=== PATIENT | male | born 1970 | race African-American/Black ===

== ENCOUNTER 2024-06-11 21:44 | Emergency (ER) | payer OTHER, SELFPAY ==
[2024-06-11 21:57] VITALS: BP 133/92; PULSE 98; RESP 18; TEMP 39; O2SAT 98; BMI 26.2
--- NOTE | 2024-06-11 22:00 | HMH.EDGENADL ---
Discharge Plan Disposition Patient Disposition: Home, Self-Care Condition: Good Prescriptions Prescriptions: New ondansetron 4 mg tablet,disintegrating 4 mg PO Q6H PRN (Reason: nausea and vomiting) Qty: 7 0RF Referrals Follow up/Referrals: Bertha Meier [Primary Care Provider] - See instructions Activity Restrictions/Add. Instructions Additional Instructions/Restrictions: You were evaluated in the ER and are appropriate for discharge at this time. Take Tylenol (acetaminophen), ibuprofen if needed for fever, body aches. Do not exceed the recommended dose on the bottle. Drink water and eat a small snack each time you take these medications. Take the prescribed ondansetron if needed for nausea or vomiting. Drink plenty of fluids including water, Gatorade, Pedialyte. Rest and recover. Wash your hands to avoid the spread of your illness. Follow-up with primary care doctor for reevaluation in a few days. Return to the ER with new, worsening, or otherwise concerning symptoms. Clinical Impressions Clinical Impression: URI (upper respiratory infection), Nausea Print Language Print Language: Swiss Discharge ED Provider: Mckinley Higgins General Adult HPI <Mckinley Higgins MD - Last Filed: 06/11/24 23:34> General Chief complaint: Fever Stated complaint: Migraine Headache,sore throat Time Seen by Provider: 06/11/24 23:18 History of Present Illness HPI narrative: 53-year-old male with history of shoulder injury for which he uses lidocaine patches but no other chronic medical conditions, presents to the ER for complaints of bodyaches, sore throat, cough, congestion, subjective fever and chills. Patient reports symptoms started approximately 24 hours ago. He states he took Tylenol earlier today. He states he has had mild nausea but no vomiting or diarrhea, no abdominal pain, he does not have any chest pain or difficulty breathing. He has no dizziness, numbness, tingling, or weakness. No difficulty swallowing or difficulties with phonation. ROS otherwise negative. Related Data Previous Rx's ?Medication ?Instructions ?Recorded ondansetron 4 mg disintegrating 4 mg PO Q6H PRN nausea and 06/11/24 tablet vomiting #7 tabs Allergies Allergy/AdvReac Type Severity Reaction Status Date / Time No Known Allergies Allergy Verified 06/11/24 22:00 <RENEE Valente - Last Filed: > General Mode of Arrival: Ambulatory Source of Information: Patient Limitations: No Limitations Description of Symptoms (Recalled from ER Triage Doc. by RN): Pt presents for evaluation of body aches, sore throat, cough, and feels unwell x 1 day [facility] <Mckinley Higgins MD - Last Filed: 06/11/24 23:34> [facility] Social History Smoking Status: Current every day smoker alcohol intake: never current occupational status: employed Travel in the last 8 weeks: None <RENEE Valente - Last Filed: > [facility] Disclaimer: The information contained in this section may have been updated after the patient was seen, as this information can be updated by other users. <Mckinley Higgins MD - Last Filed: 06/11/24 23:34> ROS Obtained: Yes Systems reviewed as appropriate & no additional complaints except as documented Per HPI Physical Exam <Mckinley Higgins MD - Last Filed: 06/11/24 23:34> General General appearance: alert and in no apparent distress Head Head exam: atraumatic and normocephalic Eye Eye exam: Present PERRL and EOMI ENT ENT exam: Present mucous membranes moist; Absent normal oropharynx (Posterior oropharynx mildly erythematous but no tonsillomegaly or exudate) Neck Neck exam: Present normal inspection and full ROM; Absent tenderness or lymphadenopathy Chest Chest inspection: Present symmetric chest wall rise Respiratory Respiratory exam: Absent respiratory distress or stridor Cardiovascular Cardiovascular exam: Present regular rate and normal rhythm Abdominal Exam Abdominal exam: Present soft; Absent distention or tenderness Extremities Exam Extremities exam: Present full ROM; Absent edema Neurological Exam Neurological exam: Present alert, oriented X3 and CN II-XII intact; Absent motor sensory deficit Psychiatric Psychiatric exam: Present normal affect and normal mood Skin Skin exam: Present warm and dry Medical Decision Making <Mckinley Higgins MD - Last Filed: 06/11/24 23:34> Edgar Inquiry Pt receiving controlled substance: No Vital Signs: 06/11/24 21:57 06/11/24 22:30 06/11/24 23:00 Temperature 102.2 F H Temperature Source Oral Pulse Rate 86 92 H Pulse Rate [Right] 98 H Respiratory Rate 18 Blood Pressure 145/86 H 152/94 H Blood Pressure [Right Arm] 133/92 H Blood Pressure Mean [Right Arm] 105 Blood Pressure Source [Right Arm] Automatic Cuff Blood Pressure Position [Right Arm] Sitting 02 Sat by Pulse Oximetry 98 98 96 Oxygen Delivery Method Room Air Room Air Room Air Lab Data Lab Results 06/11/24 22:00: SARS-CoV-2 (PCR) Not detected, Influenza A Untype (PCR) Not detected, Influenza Type B (PCR) Not detected Orders (Tests/Meds): ED MEDICATIONS Generic Name Dose Route Start Last Admin Trade Name Saumya PRN Reason Stop Dose Admin Ibuprofen 600 mg 06/11/24 23:26 Ibuprofen 600 Mg Tablet PO 06/11/24 23:27 ONCE ONE Ondansetron HCl 4 mg 06/11/24 23:26 Ondansetron 4mg Odt SL 06/11/24 23:27 ONCE ONE ORDERS Category Date Time Status Rapid PCR Covid and Flu A/B Routine Lab 06/11/24 22:00 Completed Medical Decision Narrative: In summary, this 53-year-old male presents to the emergency department today with fever, chills, body aches, nausea, cough, congestion, sore throat. On initial evaluation patient is hemodynamically stable, febrile to 102.2, lungs clear bilaterally, posterior oropharynx mildly erythematous but no tonsillomegaly, no asymmetry of the posterior oropharynx, no difficulties with phonation, no pain with extension of the neck, no exudates, no lymphadenopathy,, no peripheral edema, GCS 15 with no neurologic deficits, abdomen soft, nontender, nondistended, patient appears well-hydrated. I have high suspicion for viral syndrome including COVID, influenza, RSV, rhinovirus, other upper respiratory infection. I had considered the possibility of pneumonia but patient has clear lungs bilaterally saturating in the upper 90s on room air with no adventitious sounds, he is also only had 1 day of symptoms which significantly decreases the likelihood of pneumonia. I considered performing chest x-ray but with the very low pretest probability do not believe it is indicated at this time, this was not performed. Viral swab was performed. I had considered strep however the presence of cough and absence of lymphadenopathy go against this diagnosis. Strep test not indicated. I had considered peritonsillar abscess or retropharyngeal abscess but there is no evidence of this on exam. Patient received ibuprofen for fever treatment and ondansetron for nausea. He is tolerating oral intake and I believe is appropriate for discharge at this time. Patient is comfortable with this plan. Ondansetron prescribed for outpatient management of symptoms. Patient was given instructions on symptomatic management, follow up instructions, and return precautions for the emergency department. Patient indicated understanding and was discharged in stable condition. <RENEE Valente - Last Filed: > Medical Records Screening: Per USPSTF and CDC recommendations, given the prevalence of disease in our region, it is our hospital?s policy to screen for HIV and viral Hepatitis for all patients aged 18 and over and those with ongoing risk factors. Vital Signs: 06/11/24 21:57 06/11/24 22:30 06/11/24 23:00 Temperature 102.2 F H Temperature Source Oral Pulse Rate 86 92 H Pulse Rate [Right] 98 H Respiratory Rate 18 Blood Pressure 145/86 H 152/94 H Blood Pressure [Right Arm] 133/92 H Blood Pressure Mean [Right Arm] 105 Blood Pressure Source [Right Arm] Automatic Cuff Blood Pressure Position [Right Arm] Sitting 02 Sat by Pulse Oximetry 98 98 96 Oxygen Delivery Method Room Air Room Air Room Air Lab Data Lab Results 06/11/24 22:00: SARS-CoV-2 (PCR) Not detected, Influenza A Untype (PCR) Not detected, Influenza Type B (PCR) Not detected Orders (Tests/Meds): ED MEDICATIONS Generic Name Dose Route Start Last Admin Trade Name Freq PRN Reason Stop Dose Admin Ibuprofen 600 mg 06/11/24 23:26 Ibuprofen 600 Mg Tablet PO 06/11/24 23:27 ONCE ONE Ondansetron HCl 4 mg 06/11/24 23:26 Ondansetron 4mg Odt SL 06/11/24 23:27 ONCE ONE ORDERS Category Date Time Status Rapid PCR Covid and Flu A/B Routine Lab 06/11/24 22:00 Completed Critical Care <Mckinley Higgins MD - Last Filed: 06/11/24 23:34> Critical Care Time Critical Care Time: No
[2024-06-11 22:05] LABS: Coronavirus 19, PCR Not Detected (NotDetected); Influenza A, PCR Not Detected (NotDetected); Influenza B, PCR Not Detected (NotDetected)
[2024-06-11 22:30] VITALS: BP 145/86; PULSE 86; O2SAT 98
--- NOTE | 2024-06-11 22:33 | PC.NURSE ---
Pt awake alert and oriented Skin pink warm and dry Resp full and easy Pt has nasal congestion Speech clear and appropriate
[2024-06-11 23:00] VITALS: BP 152/94; PULSE 92; O2SAT 96
[2024-06-11 23:30] VITALS: BP 145/98; PULSE 100; O2SAT 97
[2024-06-11 23:39] VITALS: BP 145/98; PULSE 91; RESP 20; TEMP 36.8; O2SAT 97
== END 2024-06-11 23:42 | disposition home or self-care (01) ==
PROVIDERS: Emergency Medicine; Emergency Provider Emergency Medicine; PCP Family Medicine
DX: J06.9 Acute upper respiratory infection, unspecified (principal); R11.0 Nausea; R50.9 Fever, unspecified; R09.81 Nasal congestion; R05.9 Cough, unspecified; M79.10 Myalgia, unspecified site; J02.9 Acute pharyngitis, unspecified
CPT/HCPCS: 87636; 99283

== ENCOUNTER 2025-04-08 23:47 | Emergency (ER) | payer OTHER, SELFPAY ==
[2025-04-08 23:48] VITALS: BP 117/70; PULSE 101; RESP 17; TEMP 36.9; O2SAT 93; BMI 26.3
[2025-04-09] MEDS: BACITRACIN ZINC OINT 30GM TUBE TP (01:00)
[2025-04-09] MEDS: SULFA/TRIMETHOPRIM 1 TABLET 1 EACH PO (01:01)
[2025-04-09] MEDS: CLINDAMYCIN 150MG CAPSULE 450 MG PO (01:01)
[2025-04-09 01:13] VITALS: BP 115/62; PULSE 88; RESP 18; TEMP 36.6; O2SAT 96
--- NOTE | 2025-04-09 03:55 | HMH.EDGENADL ---
Discharge Plan Disposition Patient Disposition: Home, Self-Care Condition: Good Prescriptions Prescriptions: New sulfamethoxazole-trimethoprim 800-160 mg tablet 1 tab PO BID 5 Days Qty: 10 0RF clindamycin HCl [Cleocin HCl] 150 mg capsule 450 mg PO TID 5 Days Qty: 45 0RF No Action ondansetron 4 mg tablet,disintegrating 4 mg PO Q6H PRN (Reason: nausea and vomiting) Qty: 7 0RF Referrals Follow up/Referrals: Bertha Meier [Primary Care Provider, Medical] - See instructions Activity Restrictions/Add. Instructions Additional Instructions/Restrictions: You were evaluated in the ER and are believed to be appropriate for discharge at this time. Take prescribed antibiotics as directed, do not skip doses, do not stop taking it early. Keep the wounds clean and dry. Shower/bathe like normal. Wash with warm soapy water and apply the provided bacitracin ointment twice a day. Follow-up with your primary care doctor for reevaluation in 2 to 3 days. Return to the ER with any new, worsening, or otherwise concerning symptoms. Clinical Impressions Clinical Impression: Dog bite Print Language Print Language: Barbadian Discharge ED Provider: Mckinley Higgins General Adult HPI General Chief complaint: Animal Bite Stated complaint: Dog Bite R hand Time Seen by Provider: 04/09/25 00:05 Mode of Arrival: Ambulatory Source of Information: Patient Description of Symptoms (Recalled from ER Triage Doc. by RN): Pt presents to ER with dog bite. Pt reports that his 2 dogs (martin and nena) were getting dinner when they started fighting over their food. Pt attempted to try and break up the fight when he got bit. Pt unsure which dog bit him. Per pt, both dogs UTD on vaccinations including rabies. Puncture wounds noted to L hand during triage. History of Present Illness HPI narrative: 54-year-old male with history of high cholesterol presents to the ER with wounds on his hands from a dog bite. Patient reports his 2 personal dogs (martin and nena) started to fight at home and he and other family members attempted to break them up resulting in minor injuries to his hands. Both dogs are fully up-to-date on vaccines including rabies. Patient has injury to the right pinky and posterior aspect of the left hand but has full range of motion, no deformity, no numbness or weakness, no bleeding. He does not take any blood thinners. No other complaints or concerns. Related Data Previous Rx's ?Medication ?Instructions ?Recorded ondansetron 4 mg disintegrating 4 mg PO Q6H PRN nausea and 06/11/24 tablet vomiting #7 tabs clindamycin HCl 150 mg capsule 450 mg (3 x 150 mg) PO TID 5 days 04/09/25 (Cleocin HCl) #45 caps sulfamethoxazole 800 1 tab PO BID 5 days #10 tabs 04/09/25 mg-trimethoprim 160 mg tablet Allergies Allergy/AdvReac Type Severity Reaction Status Date / Time No Known Allergies Allergy Verified 06/11/24 22:00 [facility] Disclaimer: The information contained in this section may have been updated after the patient was seen, as this information can be updated by other users. Social History (Updated 06/11/24 @ 23:34 by Mckinley Higgins MD) Smoking Status: Current every day smoker alcohol intake: never current occupational status: employed Travel in the last 8 weeks?: None Have you lived/traveled outside [place] in past 30 days?: No Contact w/someone who lives/traveled outside US past 30 days?: No Exposure to someone with infectious disease in past 14 days?: No Do you have a fever (greater than 100.4 F or 38 C)?: No Have you tested positive for COVID-19?: No Exposed to someone with COVID-19 in past 14 days?: No Do you have a sore throat?: No Do you have a cough?: No Do you have any weakness?: No Do you have any diarrhea?: No Are you experiencing any unusual bleeding?: No Do you have any muscle aches/pain?: Yes Do you have any abdominal pain?: No Are you experiencing loss of taste or smell?: No ROS Obtained: Yes Systems reviewed as appropriate & no additional complaints except as documented Per HPI Physical Exam General General appearance: alert and in no apparent distress Head Head exam: atraumatic and normocephalic Eye Eye exam: Present PERRL and EOMI ENT ENT exam: Present mucous membranes moist Neck Neck exam: Present normal inspection and full ROM Chest Chest inspection: Present symmetric chest wall rise Respiratory Respiratory exam: Absent respiratory distress or stridor Cardiovascular Cardiovascular exam: Present regular rate and normal rhythm Extremities Exam Extremities exam: Present full ROM, normal capillary refill (Distal to all wounds patient is neurovascularly intact, deep structures are intact, hemostatic) and other (2 cm laceration along the medial palmar aspect of the right pinky with no disruption of the nail, small puncture wound on the palmar aspect near the MTP of the right pinky, hemostatic, deep structures intact, superficial abrasions posterior left hand) Neurological Exam Neurological exam: Present alert and oriented X3; Absent motor sensory deficit Psychiatric Psychiatric exam: Present normal affect and normal mood Skin Skin exam: Present warm and dry Medical Decision Making Medical Records Medical records reviewed: Yes I reviewed the patient's medical records. Screening: Per USPSTF and CDC recommendations, given the prevalence of disease in our region, it is our hospital?s policy to screen for HIV and viral Hepatitis for all patients aged 18 and over and those with ongoing risk factors. Edgar Inquiry Pt receiving controlled substance: No Vital Signs: 04/08/25 23:48 04/09/25 01:13 Temperature 98.4 F 97.9 F Temperature Source Oral Oral Pulse Rate 88 Pulse Rate [Left Radial] 101 H Respiratory Rate 17 18 Blood Pressure 115/62 Blood Pressure [Left Arm] 117/70 Blood Pressure Mean [Left Arm] 85 Blood Pressure Source [Left Arm] Automatic Cuff 02 Sat by Pulse Oximetry 93 L Oxygen Delivery Method Room Air Room Air Orders (Tests/Meds): ED MEDICATIONS Discontinued Medications Generic Name Dose Route Start Last Admin Trade Name Freq PRN Reason Stop Dose Admin Bacitracin 1 gm 04/09/25 00:23 04/09/25 01:00 Bacitracin Zinc Oint 30gm Tube TP 04/09/25 00:24 1 gm ONCE ONE Administration Clindamycin HCl 450 mg 04/09/25 00:22 04/09/25 01:01 Clindamycin 150mg Capsule PO 04/09/25 00:23 450 mg ONCE ONE Administration Trimethoprim/Sulfamethoxazole 1 each 04/09/25 00:22 04/09/25 01:01 Sulfa/Trimethoprim 1 Tablet PO 04/09/25 00:23 1 each ONCE ONE Administration Medical Decision Narrative: In summary, 54-year-old male presents to the ER with wounds to the hands breaking up a fight between his personal dogs who are fully vaccinated. On initial evaluation patient is hemodynamically stable, afebrile, overall well-appearing, he does have superficial linear laceration on the lateral palmar aspect of the right pinky, shallow puncture wound near the MTP of the right pinky on the palmar aspect, superficial abrasions on the posterior aspect of the left hand near the second MTP, deep structures otherwise intact, full range of motion, no crepitus or deformity, neurovascularly intact, no foreign body appreciated, hemostatic, no nailbed involvement. I considered the possibility of underlying fracture, foreign body, or deep structure injury but appreciate no evidence of these clinically. I do not believe patient requires any labs or imaging. Prophylactic antibiotics were administered in the ER and prescribed to the patient. Clindamycin and Bactrim were given since patient has penicillin allergy. Bacitracin applied. Tdap booster provided. Because dogs are fully vaccinated including rabies vaccines, rabies prophylaxis is not indicated. Because these are dog bite puncture wounds, primary closure is not indicated, they need to be able to drain and heal under secondary intention. Patient is appropriate for discharge at this time. Patient was given instructions on wound care, symptomatic management, follow up instructions, and return precautions for the emergency department. Patient indicated understanding and was discharged in stable condition. Critical Care Critical Care Time Critical Care Time: No
== END 2025-04-09 01:29 | disposition home or self-care (01) ==
PROVIDERS: Emergency Provider Emergency Medicine; PCP Family Medicine
DX: S61.451A Open bite of right hand, initial encounter (principal); S61.452A Open bite of left hand, initial encounter; W54.0XXA Bitten by dog, initial encounter
CPT/HCPCS: 99283